=== PATIENT | female | born 2000 | race Caucasian/White ===

== ENCOUNTER → 2020-01-27 | Emergency (ER) | payer SELFPAY ==
[~2020-01-27] MED LIST: Bisacodyl 10 MG SUPP ONE
== END ==
LOC: BURERS 13:53
DX: O99.611 Diseases of the digestive system complicating pregnancy, first trimester (principal); K59.09 Other constipation; O21.9 Vomiting of pregnancy, unspecified; Z3A.09 9 weeks gestation of pregnancy
CPT/HCPCS: 99283

== ENCOUNTER 2020-02-11 15:40 | Emergency (ER) | payer SELFPAY | END 2020-02-11 16:12 | disposition home or self-care (01) | LOC: BURERS 15:40 | DX: O21.9 Vomiting of pregnancy, unspecified (principal); Z3A.10 10 weeks gestation of pregnancy | CPT/HCPCS: 99283 ==

== ENCOUNTER 2020-09-02 14:33 | Emergency (ER) | payer OTHER | END 2020-09-02 15:30 | disposition short-term general hospital (02) | LOC: BURERS 14:33 | DX: O47.03 False labor before 37 completed weeks of gestation, third trimester (principal) | CPT/HCPCS: 99284 ==

== ENCOUNTER 2020-12-21 10:18 | Emergency (ER) | payer OTHER ==
[2020-12-21] MEDS ORDERED: Bupivacaine 0.5% 10 ML VIAL ONE (10:49)
[2020-12-21] MEDS ORDERED: Sulfameth/Trimethoprim DS 800-160mg TAB ONE (11:31)
[2020-12-21] MEDS ORDERED: Bacitracin 1 PK ONE (11:31)
== END 2020-12-21 11:36 | disposition home or self-care (01) ==
LOC: BURERS 10:18
DX: L60.0 Ingrowing nail (principal)
CPT/HCPCS: 11750; J3490

== ENCOUNTER 2021-02-19 14:55 | Emergency (ER) | payer OTHER ==
[2021-02-20 23:01] LABS: SARS-CoV-2 PCR by NAA Not Detected (NotDetected)
== END 2021-02-19 15:30 | disposition home or self-care (01) ==
LOC: BURERS 14:55
DX: J02.9 Acute pharyngitis, unspecified (principal); Z20.822 Contact with and (suspected) exposure to COVID-19
CPT/HCPCS: 99283; U0003; U0005